=== PATIENT | female | born 1965 | race Two or more races ===

== ENCOUNTER → 2016-09-20 | Outpatient (CLI) | payer BC ==
--- NOTE | ~2016-09-20 | US24 ---
[facility] A Service of [facility] RADIOLOGY TEXT RESULTS PATIENT: EDMUND LARES LOCATION: [facility] : 61 UNIT #: [id number] AGE: [address]: Moise Loya MD SEX: F ORDER DR: [id number] [facility]. [place], [place] [address] [id number] O MR#: [id number] Acc #: [id number] NAME: EDMUND LARES : 1965 SEX: F STUDY DATE/TIME: 09/20/2016 15:16 UNIT: [facility] ROOM: STUDY DESCRIPTION: US Breast Unilateral Attending Physician: Moise Loya M.D. Referring Physician: Moise Loya M.D. Ordering Physician: Moise Loya M.D. Primary Care Physician: Moise Loya M.D. MEDICAL IMAGING REPORT This report is preliminary unless electronic signature is present EXAM Right breast diagnostic ultrasound. DATE 09/20/2016 HISTORY Asymmetric density in the upper outer right breast on previous screening mammogram for which additional diagnostic imaging was recommended. COMPARISON Bilateral digital screening mammogram 06/25/2016. Right breast digital diagnostic mammogram 09/20/2016. FINDINGS Targeted sonographic imaging was performed of the upper outer quadrant of the right breast with particular attention to the 11 o'clock axis. Heterogeneously dense fibroglandular tissue is seen. No suspicious cystic or solid nodule, architectural distortion, or microcalcification is evident. IMPRESSION Right breast BIRADS category 2. Benign findings. Routine annual screening mammogram recommended in 1 year. Please refer to the diagnostic mammogram report from this same day for a full description of findings and recommendations. Patients over the age of 40 are entered into a reminder system with target due date for the next mammogram. A result letter will also be sent to the patient. BIRADS: 2 Benign finding. [facility] A Service of [facility] RADIOLOGY TEXT RESULTS PATIENT: EDMUND LARES LOCATION: [facility] : 61 UNIT #: [id number] AGE: [address]: Moise Loya MD SEX: F ORDER DR: Dictated by... Marita Dahl M.D. THIS IS AN ELECTRONICALLY VERIFIED REPORT Marita Dahl M.D. at 09/22/2016 9:41 AM DESHAWN/leonard TD: 09/21/2016 09:44 JOB #: [id number] MEDICAL IMAGING REPORT Page 1 of 1 COPY
--- NOTE | ~2016-09-20 | MY8 ---
[facility] A Service of [facility] RADIOLOGY TEXT RESULTS PATIENT: EDMUND LARES LOCATION: [facility] : 61 UNIT #: [id number] AGE: [address]: Moise Loya MD SEX: F ORDER DR: [id number] [address] [address] [id number] O MR#: [id number] Acc #: [id number] NAME: EDMUND LARES : 1965 SEX: F STUDY DATE/TIME: 09/20/2016 14:55 UNIT: [facility] ROOM: STUDY DESCRIPTION: MY Mammogram Dx Dig Rt Attending Physician: Moise Loya M.D. Referring Physician: Moise Loya M.D. Ordering Physician: Moise Loya M.D. Primary Care Physician: Moise Loya M.D. MEDICAL IMAGING REPORT This report is preliminary unless electronic signature is present EXAM Right breast digital diagnostic mammogram with CAD DATE 09/20/2016 HISTORY Increased asymmetric density in the upper outer right breast on previous screening mammogram for which additional diagnostic imaging was recommended. COMPARISON Bilateral digital screening mammogram 06/25/2016. FINDINGS True ML view was obtained of the right breast utilizing digital technique and reviewed with an FDA approved CAD device. Spot compression imaging was performed of the upper outer right breast, central third. Heterogeneously dense fibroglandular tissue is present within the upper outer right breast. However, on spot compression, the area in question appears to efface into normal fibroglandular components without discrete focal or suspicious mass lesion. No architectural distortion or microcalcification is seen. Targeted diagnostic ultrasound was performed of the upper outer right breast on this same date with attention to 11 o'clock axis. Heterogeneously dense fibroglandular tissue is seen. No suspicious solid or cystic nodule is identified. No architectural distortion or microcalcification is seen. IMPRESSION 1. Right breast BIRADS category 2. Benign findings. Features of normal appearing heterogeneously dense fibroglandular tissue. No [facility] A Service of [facility] RADIOLOGY TEXT RESULTS PATIENT: EDMUND LARES LOCATION: [facility] : 61 UNIT #: [id number] AGE: [address]: Moise Loya MD SEX: F ORDER DR: suspicious breast lesions are identified, either mammographically or sonographically. Patient is advised to return for routine bilateral screening mammogram in 1 year. Patient is advised to continue her monthly self-breast examination and annual physician physical examination. The findings were discussed with the patient today in the radiology department via an buccaro. She verbalized understanding. Patients over the age of 40 are entered into a reminder system with target due date for the next mammogram. A result letter will also be sent to the patient. BIRADS: 2 Benign Finding Dictated by... Marita Dahl M.D. THIS IS AN ELECTRONICALLY VERIFIED REPORT Marita Dahl M.D. at 09/21/2016 7:09 AM DESHAWN/rachel TD: 09/20/2016 21:36 JOB #: [id number] MEDICAL IMAGING REPORT Page 1 of 1 COPY
== END | disposition home or self-care (01) ==
LOC: CMAM 14:46
DX: R92.2 Inconclusive mammogram (principal); Z87.2 Personal history of diseases of the skin and subcutaneous tissue
CPT/HCPCS: 76641; G0206